=== PATIENT | female | born 2005 | race African-American/Black ===

== ENCOUNTER 2025-05-26 20:43 | Emergency (ER) | payer OTHER, SELFPAY ==
[2025-05-26 22:14] LABS: Pregnancy Test - Urine (BHCG) Negative (Negative); Pregu Control Background? CLEAR/WHITE (CLR/WHITE); Pregu Control Bar Appear? YES (CONTROL BAR)
== END 2025-05-26 22:11 | disposition home or self-care (01) ==
LOC: CSHERS 20:43
DX: N64.4 Mastodynia (principal)
CPT/HCPCS: 81025